=== PATIENT | female | born 1980 | race Two or more races ===

== ENCOUNTER 2016-09-26 17:21 | Emergency (ER) | payer MEDICAID ==
[~2016-09-26] VITALS: Ht 162.6 cm; Wt 74.0 kg
[2016-09-26 17:23] VITALS: BP 108/75
== END 2016-09-26 17:45 | disposition home or self-care (01) ==
LOC: ED 17:39
DX: S61.210A Laceration without foreign body of right index finger without damage to nail, initial encounter (principal); B30.9 Viral conjunctivitis, unspecified; X58.XXXA Exposure to other specified factors, initial encounter; Y93.89 Activity, other specified; Y99.8 Other external cause status; Y92.009 Unspecified place in unspecified non-institutional (private) residence as the place of occurrence of the external cause
CPT/HCPCS: 99283

== ENCOUNTER 2020-12-05 18:50 | Emergency (ER) | payer MEDICAID ==
[~2020-12-05] VITALS: Ht 162.6 cm; Wt 84.0 kg
[2020-12-05 19:18] VITALS: BP 126/84
[2020-12-05] MEDS ORDERED: SODIUM CHLORIDE 0.9% 1,000ML IVBOLUS ONE (19:30)
[2020-12-05] MEDS ORDERED: ONDANSETRON 2MG/ML, 2ML IVPush ONE (19:30)
[2020-12-05 19:49] LABS: BASOPHILS % (AUTO) 1 % (0-1); EOSINOPHILS % (AUTO) 1 % (1-7); LYMPHOCYTES % (AUTO) 37 % (22-44); MEAN CORPUSCULAR HEMOGLOBIN 27.9 pg (27.0-34.8); MEAN CORPUSCULAR HGB CONC 33.4 g/dL (32.4-35.8); MONOCYTES % (AUTO) 6 % (2-9); NEUTROPHILS % (AUTO) 56 % (42-75); PLATELET COUNT 251 x10^3/uL (130-400); RED BLOOD COUNT 4.78 x10^6/uL (3.82-5.3); RED CELL DISTRIBUTION WIDTH 16.2 % (9.6-15.2)
[2020-12-05 20:01] LABS: ALANINE AMINOTRANSFERASE 86 U/L (12-78); ALBUMIN 3.3 g/dL (3.4-5.0); ANION GAP 6 mmol/L (5-15); CALCIUM 7.9 mg/dL (8.5-10.1); CHLORIDE 105 mmol/L (98-107); CREATININE 0.96 mg/dL (0.55-1.02)
[2020-12-05 20:03] LABS: ALKALINE PHOSPHATASE 120 U/L (45-117); BILIRUBIN,TOTAL 0.3 mg/dL (0.2-1.0); TOTAL PROTEIN 7.7 g/dL (6.4-8.2)
--- NOTE | 2020-12-05 22:50 | NUR ---
NIL X 1
--- NOTE | 2020-12-05 23:04 | NUR ---
NIL X 2
--- NOTE | 2020-12-05 23:17 | NUR ---
NIL X 1
== END 2020-12-05 23:19 | disposition left against medical advice (07) ==
LOC: ED 19:00
DX: U07.1 COVID-19 (principal); R06.02 Shortness of breath; R50.9 Fever, unspecified; M79.10 Myalgia, unspecified site; R11.0 Nausea
CPT/HCPCS: 36415; 71045; 80053; 85025; 99284; U0003; U0005